=== PATIENT | female | born 1960 | race Caucasian/White ===

== ENCOUNTER 2022-01-15 09:19 | Emergency (ER) | payer MEDICARE ==
[~2022-01-15] VITALS: Ht 162.6 cm; Wt 68.9 kg
[2022-01-15] MEDS ORDERED: METOCLOPRAMIDE HCL 10 MG/2 ML VIAL ONE (09:59)
[2022-01-15] MEDS ORDERED: ACETAMINOPHEN ES 500 MG TABLET ONE (09:59)
[2022-01-15] MEDS ORDERED: ACETAMINOPHEN 325 MG TABLET PO ONE (10:00)
[2022-01-15] MEDS ORDERED: IV NORMAL SALINE 500 ML BAG IV ONE (10:00)
[2022-01-15] MEDS ORDERED: METOCLOPRAMIDE HCL 10 MG/2 ML VIAL IV ONE (10:00)
--- NOTE | 2022-01-15 10:00 | NUR ---
Patient c/o headache. Has mild cough. IV placed. Covid swab done and sent to lab
[2022-01-15 10:23] LABS: HEMATOCRIT 36.4 % (31.2-41.9); MEAN CORPUSCULAR HEMOGLOBIN 30.5 uug (24.7-32.8); MEAN CORPUSCULAR VOLUME 91.9 fL (75.5-95.3); PLATELET COUNT (AUTO) 216 K/uL (179-408)
[2022-01-15 10:32] LABS: BILIRUBIN,TOTAL 0.4 mg/dL (0.2-1.0); CREATININE 0.7 mg/dL (0.6-1.3); TOTAL PROTEIN, SERUM 7.5 g/dL (6.4-8.2)
--- NOTE | 2022-01-15 11:12 | NUR ---
Patient states headache "is better"
--- NOTE | 2022-01-15 11:30 | NUR ---
DC AND FOLLOW UP INSTRUCTIONS GIVEN AND EXPLAINED TO PATIENT WHO STATES SHE UNDERSTANDS ALL INSTRUCTIONS
--- NOTE | 2022-01-15 11:30 | NUR ---
IV removed. Catheter intact and site benign. Pressure and 4x4 gauze applied to site. No bleeding noted.
== END 2022-01-15 11:32 | disposition home or self-care (01) ==
LOC: ER 09:24
DX: G43.909 Migraine, unspecified, not intractable, without status migrainosus (principal); J01.80 Other acute sinusitis; J45.909 Unspecified asthma, uncomplicated; Z85.3 Personal history of malignant neoplasm of breast; Z20.822 Contact with and (suspected) exposure to COVID-19
CPT/HCPCS: 99284; 96374; 70450; 71045; 96361; 87426; 80053; 85025; 36415; J2765; J7040; A4663; A9150